=== PATIENT | male | born 1960 | race Caucasian/White ===

== ENCOUNTER 2024-03-18 08:53 | Observation (INO) ==
--- NOTE | 2024-02-07 13:41 | PAT Medication Instructions ---
Medication Instructions Date of Service February 07, 2024 Home Medications aspirin 81 mg tablet,delayed release (Adult Low Dose Aspirin) 81 mg PO QAM atenolol 25 mg tablet 50 mg PO QAM levothyroxine 150 mcg capsule 175 mcg PO QAM losartan 100 mg-hydrochlorothiazide 25 mg tablet 1 tab PO QAM omeprazole magnesium 10 mg oral suspension,delayed release (Prilosec) 20 mg PO QAM potassium chloride 10 mEq capsule,extended release 10 meq PO QAM simvastatin 40 mg tablet 40 mg PO QAM tamsulosin 0.4 mg capsule 0.4 mg PO QAM multivitamin with minerals 1 tab PO QAM tadalafil 20 mg tablet (Cialis) 20 mg PO QAM ASK your prescriber and surgeon aspirin 81 mg tablet,delayed release (Adult Low Dose Aspirin) 81 mg PO QAM DO NOT take the morning of surgery losartan 100 mg-hydrochlorothiazide 25 mg tablet 1 tab PO QAM potassium chloride 10 mEq capsule,extended release 10 meq PO QAM multivitamin with minerals 1 tab PO QAM tadalafil 20 mg tablet (Cialis) 20 mg PO QAM Take morning of surgery With a small sip of water, OTHERWISE NOTHING TO EAT OR DRINK AFTER MIDNIGHT: atenolol 25 mg tablet 50 mg PO QAM levothyroxine 150 mcg capsule 175 mcg PO QAM omeprazole magnesium 10 mg oral suspension,delayed release (Prilosec) 20 mg PO QAM simvastatin 40 mg tablet 40 mg PO QAM tamsulosin 0.4 mg capsule 0.4 mg PO QAM Other Notes If you have any questions please call us at [phone] or [phone] or [phone] or [phone]
--- NOTE | 2024-02-12 09:22 | Anesthesiology Consultation ---
Date of Service February 12, 2024 Assessment & Plan (1) Encounter for pre-operative examination: Chart Review Chart Review: Acceptable Risk for Surgery and Patient seen in Pre Admission Testing - Patient is NOT an OPJ candidate due to nature of procedure (currently 23 hour obs) Per PAT appt on 02/12/24, no recent illness/disease exposures, illness related symptoms, or recent illness/disease positive tests. Will leave to surgeon's discretion if preop Covid testing needed Teaching & Discussion Pre-Anesthesia Teaching/Discussion Notes: Instructed NPO after midnight before surgery,except medications with 15 cc of water. Medication instructions provided according to the [facility] guidelines. History Surgery Operation Date: 03/18/24 11:00 Proposed Procedures p Bilateral Total Knee Arthroplasty - Mahesh Marshall DO Height/Weight Height: 5 ft 8 in Weight: 117.2 kg Allergies Allergy/AdvReac Type Severity Reaction Status Date / Time No Known Allergies Allergy Verified 02/01/24 10:38 Medications Home Medications Medication Instructions Recorded Confirmed Last Taken aspirin 81 mg tablet,delayed 81 mg PO QAM 01/30/24 02/01/24 Unknown release (Adult Low Dose Aspirin) atenolol 25 mg tablet 50 mg PO QAM 01/30/24 02/01/24 Unknown levothyroxine 150 mcg capsule 175 mcg PO QAM 01/30/24 02/01/24 Unknown losartan 100 1 tab PO QAM 01/30/24 02/01/24 Unknown mg-hydrochlorothiazide 25 mg tablet omeprazole magnesium 10 mg oral 20 mg PO QAM 01/30/24 02/01/24 Unknown suspension,delayed release (Prilosec) potassium chloride 10 mEq 10 meq PO QAM 01/30/24 02/01/24 Unknown capsule,extended release simvastatin 40 mg tablet 40 mg PO QAM 01/30/24 02/01/24 Unknown tamsulosin 0.4 mg capsule 0.4 mg PO QAM 01/30/24 02/01/24 Unknown multivitamin with minerals 1 tab PO QAM 02/01/24 02/01/24 Unknown tadalafil 20 mg tablet (Cialis) 20 mg PO QAM 02/01/24 02/01/24 Unknown Past Medical History Medical History (Updated 02/12/24 @ 13:01 by Brie Gilman PA-C) Benign prostatic hyperplasia GERD (gastroesophageal reflux disease) well controlled and stable with Omeprazole History of COVID-19 (2021) not hospitalized, resolved Hx of renal calculi passed on own no current issues Hypercholesterolemia Hypertension Hypothyroidism Osteoarthritis of both knees Sleep apnea cpap Exercise / Class Metabolic Activity II 4-5 Yardwork/Stairs/Walk up hill (one flight of stairs - no chest pain or SOB ) Past Surgical History Surgical History Hx of colonoscopy with polypectomy Hx of foot surgery x3 left Hx of parathyroidectomy left side, due to elevated calcium Hx of tonsillectomy Past Anesthesia History No Hx of Anesthesia Complications and No Family Hx of Anesthesia Complications History of PONV No Hx of PONV and No Hx of Motion Sickness Social History Smoking Status: Former smoker Do You Dip or Chew Tobacco: No Smoking End Date: quit 2015 (1 PPD plus) Hx Alcohol Use: Yes Alcohol type: beer and hard liquor alcohol intake frequency: 0-2 drinks per day (1-2 drinks/day) Hx Substance Use: No substance use type: does not use Review of Systems - Occ post nasal drip - chronic and stable Patient denies chest pain, shortness of breath, dyspnea on exertion, cough, wheezing, palpitations. No hx of seizures, stroke, DC. No hx of blood clots or blood transfusions Physical Exam Vital Signs VITALS BP 121/71 P 64 TEMP 97.7 SP02 96% RESP 16 Constitutional no acute distress ENMT Mouth: no TMJ clicking Thyromental Distance: > or= 3.5 Finger Breadths (4.0) Mallampati Class: III Missing molars/side teeth [place] to molar Neck neck extension not limited Respiratory normal respiratory effort; no respiratory distress Auscultation: lungs clear to auscultation bilaterally; no wheezes Cardiovascular Rate/Rhythm: regular rate and regular rhythm Heart Sounds: no murmur Vessels: no carotid bruit Musculoskeletal Spine: + pain with cervical ROM (mild) Extremities: extremities normal to inspection Psychiatric Orientation: alert Lab Results Anesthesia Preop Results Results Anesthesia Widget: WBC 7.48 K/ul (4.8-10.8) 02/12/24 Hgb 13.8 g/dl (14.0-18.0) L 02/12/24 Hct 40.5 % (42.0-52.0) L 02/12/24 Plt 211 K/uL (130-400) 02/12/24 Na 138 mmol/L (136-145) 02/12/24 K 4.5 mmol/L (3.5-5.1) 02/12/24 Cl 109 mmol/L (98-107) H 02/12/24 CO2 24 mmol/L (21-32) 02/12/24 BUN 28 mg/dl (6-23) H 02/12/24 Creat 1.09 mg/dl (0.6-1.4) 02/12/24 Glucose Level 123 mg/dl (70-99(Fasting)) H 02/12/24 PT 11.4 Seconds (9.0-12.0) 02/12/24 PTT 27 Seconds (21-31) 02/12/24 INR 1.1 (0.9-1.1) 02/12/24 Blood Type O Negative 02/12/24 Antibody Screen NEGATIVE 02/12/24 Testing Electrocardiogram Date: 02/12/24 Findings: + NSR @ (61bpm ) Normal EKG per cardio Chest X-Ray Date: 02/12/24 Findings: + NAD FINDINGS: No pneumothorax. No pleural effusions. The cardiac silhouette is normal in size. No focal lung consolidations to suggest a pneumonia. No evidence for pulmonary edema. No acute fractures. Mild degenerative changes within the shoulders.
--- NOTE | 2024-03-14 13:30 | History & Physical Report ---
Date of Service March 14, 2024 Assessment & Plan (1) Osteoarthritis of knees, bilateral: We will proceed with bilateral total knee arthroplasties. Postoperatively he will be started on aspirin for DVT prophylaxis and kept overnight in the hospital for postop medical management. He plans to have the hospital set up home health for discharge. History of Present Illness Chief Complaint: Osteoarthritis bilateral knees. Primary Care Provider: NO PCP Walker is a pleasant 63-year-old male who has been dealing with chronic increasing bilateral knee pain. He lives up in [place]. He has had injections of his knees with minimal relief. Most of his pain is located laterally on his knees. He did some therapy without relief. He has done activity modification a nd continues to have a lot of knee pain. X-rays and clinical examination been diagnostic for advanced osteoarthritis of both knees. After failing conservative treatment, he has elected to proceed with bilateral total knee arthroplasties. Allergies Allergy/AdvReac Type Severity Reaction Status Date / Time No Known Allergies Allergy Verified 02/01/24 10:38 Home Medications Medication Instructions Recorded Confirmed Type aspirin 81 mg tablet,delayed 81 mg PO QAM 01/30/24 02/01/24 History release (Adult Low Dose Aspirin) atenolol 25 mg tablet 50 mg PO QAM 01/30/24 02/01/24 History levothyroxine 150 mcg capsule 175 mcg PO QAM 01/30/24 02/01/24 History losartan 100 1 tab PO QAM 01/30/24 02/01/24 History mg-hydrochlorothiazide 25 mg tablet omeprazole magnesium 10 mg oral 20 mg PO QAM 01/30/24 02/01/24 History suspension,delayed release (Prilosec) potassium chloride 10 mEq 10 meq PO QAM 01/30/24 02/01/24 History capsule,extended release simvastatin 40 mg tablet 40 mg PO QAM 01/30/24 02/01/24 History tamsulosin 0.4 mg capsule 0.4 mg PO QAM 01/30/24 02/01/24 History multivitamin with minerals 1 tab PO QAM 02/01/24 02/01/24 History tadalafil 20 mg tablet (Cialis) 20 mg PO QAM 02/01/24 02/01/24 History Past Med/Surg History Problem List Osteoarthritis of knees, bilateral Hx of colonic polyps Medical History Hx of renal calculi passed on own no current issues History of COVID-19 (2021) not hospitalized, resolved Sleep apnea cpap GERD (gastroesophageal reflux disease) well controlled and stable with Omeprazole Hypothyroidism Benign prostatic hyperplasia Hypercholesterolemia Hypertension Osteoarthritis of both knees Surgical History Hx of colonoscopy with polypectomy Hx of parathyroidectomy left side, due to elevated calcium Hx of tonsillectomy Hx of foot surgery x3 left Social History Smoking Status: Former smoker Smoking End Date: quit 2015 (1 PPD plus); Second Hand Exposure: No; Do You Dip or Chew Tobacco: No; Tobacco Cessation Education Requested by Patient: No Hx Alcohol Use: Yes Alcohol type: beer and hard liquor Hx Substance Use: No Preferred Language: Cameroonian Communication Ability: Effective News Video Editor Required: No Beliefs That Will Affect Care: None Current Living Situation: Significant Other Other Information That Helps Us Care for You: No Feels Safe at Home: Yes Safety Concerns: Feels Safe At This Time Assistive Devices: Cane, CPAP and Glasses Review of Systems All systems reviewed & are unremarkable except as noted in HPI & below. Physical Exam On physical examination of both knees, he has a slight valgus deformity. He is tenderness palpation of the distal lateral femoral condyles and over the lateral joint lines.. Constitutional WD/WN, vitals as above Eyes PERRL, conjunctivae normal, anicteric sclerae ENMT external ear and nose normal, oropharynx normal Neck trachea midline, no thyromegaly Respiratory normal respiratory effort Cardiovascular RRR, no murmur, no edema Gastrointestinal (Abdomen) normal bowel sounds, soft, nontender, no hepatosplenomegaly Psychiatric A+Ox3, euthymic affect Results & Data Results & Data Laboratory Results . Diagnostic Findings X-rays of both knees show advanced osteoarthritis with joint space narrowing, osteophyte formation, and [id number] articulation. PG Care Time/CCT Total # of Minutes Spent Total Time Spent with Patient: Total time spent is greater than 50% in coordination of care (as documented) at patient's floor/unit and/or counseling patient: Coding Level of Care Code None Diagnoses Osteoarthritis of knees, bilateral M17.0
[~2024-03-18 08:53] MED LIST: ROPIVACAINE 0.5% 5 MG/ML 30 ML VIAL ONE
[2024-03-18] MEDS: LR 60ML/HR IV SCH (09:35)
[2024-03-18] MEDS: FAMOTIDINE 20 MG TAB PO SCH (09:37)
[2024-03-18] MEDS: GABAPENTIN 300 MG CAP PO SCH (09:37)
[2024-03-18] MEDS: ACETAMINOPHEN 500 MG TAB PO SCH ×2 (09:37→16:59)
[2024-03-18] MEDS: LR 500ML BOLUS, THEN 15ML/HR IV SCH (09:46)
[2024-03-18] MEDS: dexAMETHasone**PF** 10 MG/ML VIAL IV SCH (09:46)
--- NOTE | 2024-03-18 10:23 | History & Physical Bridge Note ---
Date of Service March 18, 2024 History & Physical Bridge Note I have examined the patient, reviewed the History & Physical and in the interval since the performance of the History & Physical I have noted the following changes of clinical significance: no changes noted
[2024-03-18] MEDS ORDERED: MIDAZOLAM HCL 1 MG/ML 2ML VIAL ONE (10:53)
[2024-03-18] MEDS ORDERED: PROPOFOL IV EMULSION 10 MG/ML 20 ML VIAL IV ONE (10:56)
[2024-03-18] MEDS ORDERED: HYDROmorphone INJ 1 MG/ML SYRINGE IV PRN (11:16)
[2024-03-18] MEDS ORDERED: ATROPINE SULFATE 0.1 MG/ML 10ML SYR IV PRN (11:16)
[2024-03-18] MEDS ORDERED: ONDANSETRON INJ 2 MG/ML 2 ML VIAL IV PRN ×2 (11:16→16:18)
[2024-03-18] MEDS ORDERED: KETOROLAC 30 MG/ML VIAL IV PRN (11:16)
[2024-03-18] MEDS ORDERED: ePHEDrine sulfate 50 MG/ML AMP IV PRN (11:16)
[2024-03-18] MEDS: TRANEXAMIC ACID 1,000 MG **IV Pre-op IV SCH (11:21)
[2024-03-18] MEDS: ceFAZolin 2000MG 2,000 MG/15 ML SYR IV SCH ×2 (11:34→19:49)
[2024-03-18] MEDS: ROPIV 0.5% 246mg, Ketorolac 30mg, EPINEPHrine 0.5mg in NSS INFIL SCH (12:11)
[2024-03-18] MEDS: ORTHO JOINT ANESTHETIC ONE (12:12)
[2024-03-18] MEDS: TRANEXAMIC ACID 1,000 MG **IV Intra-op IV SCH (13:23)
--- NOTE | 2024-03-18 13:38 | Operative Report ---
PG Post Operative Report Pre & Post Diagnosis Operation Date: 03/18/24 11:00 Pre-Op Diagnosis: Osteoarthritis Bilateral Knees Post-Op Diagnosis: Osteoarthritis Bilateral Knees I identified the patient and participated in the time-out.: Yes Procedure Operation Date: 03/18/24 11:00 Actual Procedures p Bilateral Total Knee Arthroplasty(Bilateral) - Mahesh Marshall DO Surgeon Mahesh Marshall DO Block Operator Mahesh Allen PA-C Estimated Blood Loss 50 Findings Consistent with Post-Op Diagnosis Specimens Bilateral femoral and tibial bone Description of Procedure Walker arrived [facility] for the above procedure. He was seen in the preoperative holding area and both knees were identified and signed. He was given a preoperative antibiotic, TXA, a spinal anesthetic and adductor nerve blocks. He was taken back to the operating room and laid on the table in supine position. He was given basic sedation. Both knees were then prepped and draped in sterile fashion. A timeout was done, and the patient and the operative extremities were properly identified. Right knee implants used: I used a Bryan Persona total knee arthroplasty system with a size 7 standard PS femur, E tibia, 31 oval patella, and a size 12 CPS polyethylene bearing. All components were cemented in place with Palacos G cement. A midline incision was made directly over the patella. Dissection was taken down to the extensor mechanism. A medial parapatellar arthrotomy was used. The medial retinaculum was released and the fat pad was mostly excised. The knee was flexed and the ACL, PCL, and meniscus were removed. A drill was sent down the center of the femoral canal followed by an intramedullary kenna. Off that kenna a distal femoral cutting block was placed. 9 mm was resected off the distal femur at 5 of valgus. A posterior referencing AP sizing guide was then placed on the distal femur. The femur measured to be a size 7. 2 drill holes were placed in 3 of external rotation. A 4-in-1 cutting block was then impacted into place. Anterior, posterior, and chamfer cuts were then made. The proximal tibia was then exposed. An external tibial alignment guide was placed. A tibial cut guide was then anchored in place and the proximal tibia was then resected. The posterior aspect of the knee was then opened up and any additional meniscus fragments and osteophytes were removed. The tibia measured to be a size E. The tibial plate was then placed in the appropriate rotation and the tibia was drilled and punched. Trial components were then placed. I used a size 12 CPS polyethylene insert. The knee was brought through a full range of motion and felt to be stable. The peg holes for the femur were then drilled. The patella was then everted and 9 mm was resected off the posterior aspect of the patella. The patella measured to be a size 31 oval. 3 peg holes were then drilled. A trial patella was placed. The knee was once again brought through a full range of motion and felt to be stable. Trial components were then removed. The surrounding soft tissues were injected with 50 cc of an orthopedic pain control cocktail. All components were then cemented into place with Palacos G cement. The final polyethylene insert was then snapped into place. Once cement was dry the tourniquet was deflated. Hemostasis was obtained. A dilute betadyne lavage was then done for 3 minutes. The joint was then irrigated with normal saline solution. The medial parapatellar arthrotomy was then closed with #1 Vicryl suture. The skin was closed with 2-0 Vicryl, 3-0V lock suture, and edil. A Silverlon and a soft compressive dressing were placed. Left knee implants used: I used a Bryan Persona total knee arthroplasty system with a size 7 standard PS femur, E tibia, 31 oval patella, and a size 12 CPS polyethylene bearing. All components were cemented in place with Palacos G cement. A midline incision was made directly over the patella. Dissection was taken down to the extensor mechanism. A medial parapatellar arthrotomy was used. The medial retinaculum was released and the fat pad was mostly excised. The knee was flexed and the ACL, PCL, and meniscus were removed. A drill was sent down the center of the femoral canal followed by an intramedul amy kenna. Off that kenna a distal femoral cutting block was placed. 9 mm was resected off the distal femur at 5 of valgus. A posterior referencing AP sizing guide was then placed on the distal femur. The femur measured to be a size 7. 2 drill holes were placed in 3 of external rotation. A 4-in-1 cutting block was then impacted into place. Anterior, posterior, and chamfer cuts were then made. The proximal tibia was then exposed. An external tibial alignment guide was placed. A tibial cut guide was then anchored in place and the proximal tibia was then resected. The posterior aspect of the knee was then opened up and any additional meniscus fragments and osteophytes were removed. The tibia measured to be a size E. The tibial plate was then placed in the appropriate rotation and the tibia was drilled and punched. Trial components were then placed. I used a size 12 CPS polyethylene insert. The knee was brought through a full range of motion and felt to be stable. The peg holes for the femur were then drilled. The patella was then everted and 9 mm was resected off the posterior aspect of the patella. The patella measured to be a size 31 oval. 3 peg holes were then drilled. A trial patella was placed. The knee was once again brought through a full range of motion and felt to be stable. Trial components were then removed. The surrounding soft tissues were injected with 50 cc of an orthopedic pain control cocktail. All components were then cemented into place with Palacos G cement. The final polyethylene insert was then snapped into place. Once cement was dry the tourniquet was deflated. Hemostasis was obtained. A dilute betadyne lavage was then done for 3 minutes. The joint was then irrigated with normal saline solution. The medial parapatellar arthrotomy was then closed with #1 Vicryl suture. The skin was closed with 2-0 Vicryl, 3-0V lock suture, and edil. A Silverlon and a soft compressive dressing were placed. He was then transferred to a hospital bed and taken to the postanesthesia care unit in stable condition. He tolerated the procedure well. Mahesh Allen PA-C, was present for the entire procedure. He was critical for patient positioning, prepping, draping, retraction exposure, wound closure and application of sterile dressing. I attest to the content of the Intraoperative Record and any orders documented therein. Any exceptions are noted below.
--- NOTE | 2024-03-18 14:24 | XRay Report ---
LEFT KNEE 2 VIEWS History: Left total knee arthroplasty. Degenerative arthritis. Postop. FINDINGS: The patient is status post a left total knee arthroplasty. The hardware is intact. No fract ure or dislocation. Skin edil are in place. IMPRESSION: Left total knee arthroplasty. No evidence for hardware complication. ACT 112: Negative or not required by law. Electronically signed by: Uriel Lei M.D. 03/18/2024 2:22 PM
--- NOTE | 2024-03-18 14:52 | XRay Report ---
TWO VIEWS RIGHT KNEE CLINICAL HISTORY: Postoperative examination. FINDINGS: AP and crosstable lateral portable views of the right knee are obtained. A right knee arthr oplasty is in near anatomic alignment. There has been undersurface remodeling of the patella. No acut e fracture is seen. There are expected postoperative changes around the knee including skin clips, so ft tissue edema, and subcutaneous gas. IMPRESSION: Expected postoperative changes status post right knee arthroplasty. No acute fracture is seen. ACT 112: Negative or not required by law. Electronically signed by: Oseas Bolden M.D. 03/18/2024 2:50 PM
--- NOTE | 2024-03-18 14:57 | Anesthesiology Progress Note ---
Date of Service March 18, 2024 Anesthesia Post Procedure Vital Signs Vital Signs: Temp Pulse Resp BP BP Pulse Ox O2 Del Method 03/18/24 14:55 36.4 C L 52 L 22 131/72 95 Room Air 03/18/24 14:45 50 L 16 134/74 96 Room Air 03/18/24 14:35 50 L 20 135/74 96 Room Air 03/18/24 14:25 54 L 22 134/77 96 Room Air 03/18/24 14:15 50 L 20 117/78 96 Oxymask 03/18/24 14:05 52 L 18 127/82 97 Oxymask 03/18/24 13:55 36.4 C L 59 L 16 114/73 97 Oxymask 03/18/24 09:20 36.5 C 55 L 20 170/91 H 170/122 H 98 Room Air O2 Flow Rate 03/18/24 14:55 03/18/24 14:45 03/18/24 14:35 03/18/24 14:25 03/18/24 14:15 4 03/18/24 14:05 4 03/18/24 13:55 10 03/18/24 09:20 Pain Intensity Bilateral Knee: Pain Intensity: 2 Transfer of Care Handoff Completed per policy Notes Mental Status: alert / awake / arousable Patient Amnestic to Procedure: Yes Nausea / Vomiting: adequately controlled Pain: adequately controlled Airway Patency, RR, SpO2: stable & adequate BP & HR: stable & adequate Hydration State: stable & adequate Neuraxial Anesthesia: was administered and sensory block is resolving Anesthetic Complications: no major complications apparent
[2024-03-18] MEDS ORDERED: MAGNESIUM HYDROXIDE SUSP 30 ML UDC PO PRN (16:18)
[2024-03-18] MEDS ORDERED: bisacodyL 10 MG SUPP PR PRN (16:18)
[2024-03-18] MEDS ORDERED: oxyCODONE HCL IR 5 MG TAB (IMMEDIATE RELEASE) PO PRN (16:18)
[2024-03-18] MEDS ORDERED: NALOXONE HCL 0.4 MG/1 ML VIAL/CARP IV PRN (16:18)
[2024-03-18] MEDS ORDERED: HYDROmorphone INJ 0.5 MG/0.5 ML SYR IV PRN (16:18)
[2024-03-18] MEDS ORDERED: METOCLOPRAMIDE HCL INJ 5 MG/ML 2 ML VIAL IV PRN (16:18)
[2024-03-18] MEDS: KETOROLAC TROMETHAMINE 15 MG/ML VIAL IV SCH (16:59)
[2024-03-18] MEDS: SODIUM CHLORIDE 0.9% 1,000 ML IV SCH (17:00)
[2024-03-18] MEDS: ASPIRIN 81 MG ECTAB PO SCH (21:23)
[2024-03-18] MEDS: DOCUSATE SODIUM 100 MG CAP PO SCH (21:23)
[2024-03-18] MEDS: SENNA 8.6 MG TAB PO SCH (21:23)
[2024-03-19] MEDS: LEVOTHYROXINE SODIUM 175 MCG TABLET PO SCH (06:00)
--- NOTE | 2024-03-19 06:47 | Orthopedic Progress Note ---
Date of Service March 19, 2024 Assessment & Plan (1) Status post bilateral knee replacements: Overall he is doing very well. He is not having much pain in his knees. He will be seen by physical therapy today for ambulation and range of motion exercises. The nursing staff can change his dressings after physical therapy. He is on aspirin for DVT prophylaxis. He can be discharged home later today. He will follow-up orthopedics in 2 weeks. Curry Cardoso was seen and examined at bedside this morning. Overall is doing very well. He is not having much pain in his knees. He has been up and ambulating to the bathroom. He has no complaints.. Review of Systems All systems reviewed & are unremarkable except as noted in HPI & below. Physical Exam On physical examination of both knees, the dressings are clean and dry. His legs are out full extension. He has active dorsiflexion plantarflexion of both ankles.. Results & Data Results & Data Laboratory Results . Diagnostic Findings Postoperative x-rays of both knees show the prosthesis to be in anatomic alignment without any evidence of fracture complication, or loosening.. PG Care Time/CCT Total # of Minutes Spent Total Time Spent with Patient: Total time spent is greater than 50% in coordination of care (as documented) at patient's floor/unit and/or counseling patient: Coding Level of Care Code 30117 Post Operative Follow-Up Diagnoses Status post bilateral knee replacements Z96.653
--- NOTE | 2024-03-19 06:48 | Discharge Summary ---
Date of Service March 19, 2024 Admission HPI (Per Admitting) Walker is a pleasant 63-year-old male who has been dealing with chronic increasing bilateral knee pain. He lives up in [place]. He has had injections of his knees with minimal relief. Most of his pain is located laterally on his knees. He did some therapy without relief. He has done activity modification and continues to have a lot of knee pain. X-rays and clinical examination been diagnostic for advanced osteoarthritis of both knees. After failing conservative treatment, he has elected to proceed with bilateral total knee arthroplasties. Admission Exam (Per Admitting) On physical examination of both knees, he has a slight valgus deformity. He is tenderness palpation of the distal lateral femoral condyles and over the lateral joint lines.. Principal Diagnosis Same as "Discharge Diagnosis" noted below under Discharge Instructions. Discharge Exam On physical examination of both knees, the dressings are clean and dry. His legs are out full extension. He has active dorsiflexion plantarflexion of both ankles.. Discharge Data Procedures Performed Operation Date: 03/18/24 11:00 Actual Procedures p Bilateral Total Knee Arthroplasty(Bilateral) - Mahesh Marshall DO Ordered Studies 03/18/24 05:00 US - OR guided needle placemen Routine Hospital Course (1) Status post bilateral knee replacements: On March 18, 2024 Walker arrived at [facility] and underwent bilateral knee replacements without complication. He had a spinal anesthetic. Postoperatively he was started on aspirin for DVT prophylaxis and transferred to the general orthopedic floors. His hospital course was uneventful. On postop day #1, his vital signs were stable and his pain was well-controlled. He was able to participate well with physical therapy doing ambulation and range of motion exercises. He was then discharged home. He will follow-up with orthopedics in 2 weeks. PG Care Time/CCT Total # of Minutes Spent Total Time Spent with Patient: Total time spent is greater than 50% in coordination of care (as documented) at patient's floor/unit and/or counseling patient: Discharge Plan Discharge Items Patient Disposition: Home - Self-Care Reason For Visit: Bilateral Knee Arthritis Discharge Diagnosis: Bilateral knee replacements Activity: Per Instructions section Non-emergency contact: Surgeon Call non-emergency contact if: your wound has increased redness and your wound has increased drainage Follow-up/Referrals: PCP,NO [Primary Care Provider] - Diet: Regular Addtl Attending Provider Instructions: Activity and Therapy Recommendations: * If you are using [facility] then therapy will be provided at your home until they feel you have accomplished all of your goals. * If you are using [facility] then Physical Therapy will be provided until they feel you are ready to start Outpatient Physical Therapy. * If you are not using home therapy then Outpatient Physical Therapy should start about 3-5 days from your day of surgery. Therapy will last about 6-10 weeks * It is important not to put a pillow under your knee when you are relaxing or sleeping. It is just as important to make sure you are getting your knee perfectly straight as it is to regain your knee bend. * You were shown a series of exercises in the hospital. Do these exercises three times each day including the exercises you were shown in physical therapy. * Get up and walk several times each day. For the first four weeks, try not to stand or walk for more than one hour at a time. If you do stand or walk for more than one hour, you will not hurt anything, but your leg will likely swell. * As you feel comfortable, you may change from the walker or crutches to a cane and then to independent walking. Medications: * Narcotic You will likely be sent home from the hospital with a prescription for the narcotic pain medication that worked best throughout your stay. * Cefadroxil -take the antibiotic twice a day for 10 days to help prevent infection. * Aspirin Most patients will be required to take Aspirin 81mg twice a day for 6 weeks after surgery. This is obtained [id number] and a prescription is not necessary. * Other medications may be prescribed for specific circumstances. If you have any questions, please call the office at . * Resume previous home medications unless otherwise instructed TEDs/Elastic Stockings: The white elastic stockings help limit swelling and prevent blood clots from forming in your legs.~ The more you wear them, the more they work. Wear them for six weeks. Dressing Care: The dressing can be changed after physical therapy on postop day #1. Daily dry dressing changes for a few days, especially if the incision is still draining some. If the incision is not draining then you may leave the edil open to air. If there is a little bit of drainage or if the edil are getting stuck on your clothing then cover the incision with a dry dressing. The edil will be removed at your 2 week follow-up appointment. Showering: You may shower 5 days from the day of surgery as long as the incision is no longer draining. You may shower with the edil exposed. Let soapy water run over the edil and pat them dry. Do not scrub or soak the incision. Things To Watch For: * Drainage from the incision site that occurs more than one week after your surgery. * Increased redness at the incision site. * Fever above 102 degrees Fahrenheit. * Unusual chest pain or shortness of breath. * Call [facility] at with any of the above problems Follow-Up Visit: Follow-up with Dr. Marshall's PA (Mahesh Allen) 2-3 weeks after your day of surgery. He will remove your edil and answer any questions. If you have any additional questions or concerns, Dr Marshall is usually in the office at the same time and will be available An appointment was probably scheduled when you signed-up for surgery in the office. If you have any questions call Office Instructions: More detailed instructions as well as Frequently Asked Questions were provided in a folder by our office when you signed-up for surgery. Please review these instructions when you get home. If you have any further questions or concerns, please feel free to call the office at [phone] Pending Studies at Discharge: No Stand-Alone Forms: My [facility] Medications and DC Order Prescriptions: New oxycodone 5 mg Tablet 5 mg PO Q4H PRN (Reason: pain) Qty: 30 0RF cefadroxil 500 mg capsule 500 mg PO BID 10 Days Qty: 20 0RF Continued atenolol 25 mg tablet 50 mg PO QAM levothyroxine 150 mcg capsule 175 mcg PO QAM losartan-hydrochlorothiazide 100-25 mg tablet 1 tab PO QAM potassium chloride 10 mEq capsule, extended release 10 meq PO QAM Prilosec 10 mg susp,delayed release for recon 20 mg PO QAM simvastatin 40 mg tablet 40 mg PO QAM tamsulosin 0.4 mg capsule 0.4 mg PO QAM Men's One Daily Tablet 1 tab PO QAM tadalafil [Cialis] 20 mg Tablet 20 mg PO QAM Changed aspirin [Adult Low Dose Aspirin] 81 mg tablet,delayed release (DR/EC) 81 mg PO BID 42 Days Qty: 0 0RF Discharge Orders: Discharge Order (Routine); Ordered 03/19/24 Ordered By: Mahesh Marshall Admission Data Admit Date/Time: 03/18/24 13:57 Attending Provider: Mahesh Marshall Admit Provider: Mahesh Marshall Primary Care Provider: PCP,NO
[2024-03-19] MEDS: ATENOLOL 50 MG TABLET PO SCH (08:39)
[2024-03-19] MEDS: TAMSULOSIN HCL 0.4 MG CAP PO SCH (08:40)
[2024-03-19] MEDS: LOSARTAN/HCTZ 50/12.5MG TAB PO SCH (08:40)
[2024-03-19] MEDS: dexAMETHasone 4 MG TAB PO SCH (08:40)
[2024-03-19] MEDS: MULTIVITAMIN TAB PO SCH (08:40)
[2024-03-19] MEDS: POTASSIUM CHLORIDE 10 MEQ TABCR PO SCH (08:40)
[2024-03-19] MEDS: SIMVASTATIN 40 MG TAB PO SCH (08:40)
== END 2024-03-19 11:13 | disposition home or self-care (01) ==
LOC: ASU 08:53 → 3E 08:53